=== PATIENT | male | born 1950 | race Caucasian/White ===

== ENCOUNTER 2023-12-23 05:45 | Day surgery (SDC) | payer MEDICARE ==
[~2023-12-23] VITALS: Ht 172.7 cm; Wt 69.1 kg
[~2023-12-23 05:45] MED LIST: LACTATED RINGER'S 1,000 ML IV SCH
[2023-12-23] MEDS ORDERED: FAMOTIDINE 20 MG/ 2 ML VIAL ONE (06:26)
[2023-12-23] MEDS ORDERED: KETOROLAC TROMETHAMINE 30 MG/ML VIAL ONE (06:26)
[2023-12-23] MEDS ORDERED: ondansetron HCL 4 MG/2 ML VIAL ONE (06:26)
[2023-12-23] MEDS ORDERED: propofoL 200 MG/20 ML VIAL ONE (06:26)
[2023-12-23] MEDS ORDERED: DEXAMETHASONE SOD PHOS 4 MG/ML VIAL ONE (06:26)
[2023-12-23] MEDS ORDERED: LACTATED RINGER'S 1,000 ML IV ONE (06:26)
[2023-12-23] MEDS ORDERED: fentaNYL citrate 100 MCG/2 ML VIAL ONE (06:26)
[2023-12-23] MEDS ORDERED: METOCLOPRAMIDE HCL 10 MG/2 ML SDV ONE (06:26)
[2023-12-23] MEDS ORDERED: MIDAZOLAM HCL 2 MG/2 ML VIAL ONE (06:26)
[2023-12-23] MEDS ORDERED: CEFAZOLIN SODIUM 2 GM/20 ML SYR IV SCH (07:00)
[2023-12-23] MEDS ORDERED: IBLOOD GLUCOSE TEST STRIP 1 EA TEST VI PRN ×2 (07:00→09:00)
[2023-12-23] MEDS ORDERED: LIDOCAINE HCL 1% 5 ML SDV INJ ONE (07:00)
[2023-12-23] MEDS ORDERED: HEParin SOD (PORCINE) 5,000 UNIT/0.5 ML SYR SUB-Q SCH (07:00)
--- NOTE | 2023-12-23 07:33 | NUR ---
PT NOT AVAILABLE FOR VISIT. PROVIDED PRAYER.
[2023-12-23] MEDS ORDERED: SUCCINYLCHOLINE IN 0.9% NACL 200 MG/10 ML SYRINGE ONE (07:50)
[2023-12-23] MEDS ORDERED: ATROPINE SULFATE 1 MG/ML VIAL ONE (08:10)
[2023-12-23] MEDS ORDERED: ondansetron HCL 4 MG/2 ML VIAL IV PRN ×2 (09:00→09:45)
[2023-12-23] MEDS ORDERED: METOCLOPRAMIDE HCL 10 MG/2 ML SDV IV PRN (09:00)
[2023-12-23] MEDS ORDERED: PROCHLORPERAZINE EDISYLATE 10 MG/2 ML VIAL IV PRN ×2 (09:00→09:45)
[2023-12-23] MEDS ORDERED: droPERidol 5 MG/2 ML VIAL IV PRN (09:00)
[2023-12-23] MEDS ORDERED: NALOXONE HCL 0.4 MG SYR IV PRN ×2 (09:00→09:45)
[2023-12-23] MEDS ORDERED: fentaNYL citrate 50 MCG/ML SDV IV PRN (09:00)
[2023-12-23] MEDS ORDERED: MORPHINE SULFATE 10 MG/ML VIAL IV PRN (09:00)
--- NOTE | 2023-12-23 09:38 | NUR ---
12/23/23 0938 Pramod Jaimes 0923: PT ARRIVED TO PACU VIA STRETCHER. PT HAD ORAL AIRWAY IN PLACE ON 10L. PT NON AROUSABLE. GAUZE AND TAPE DRESSING IN PLACE TO RIGHT INGUINAL AREA. DRESSING C/D/I. 0928: ORAL ARIWAY REMOVED AT THIS TIME. PT AROUSABLE TO NAME. PT TITRATED TO ROOM AIR WITH REMOVAL OF ORAL AIRWAY. 0935: PT REQUESTING WATER AT THIS TIME FOR DRY MOUTH. SIP OF WATER GIVEN AT THIS TIME.
[2023-12-23] MEDS ORDERED: HYDROCODONE/ACETA 5/325 TAB PO PRN (09:45)
[2023-12-23] MEDS ORDERED: HYDROmorphone HCL 1 MG/ML SYR IV PRN (09:45)
--- NOTE | 2023-12-23 10:15 | NUR ---
patient returned from PACU via stretcher. report taken from STEPHANIE Bustamante. EBL 50mL. He is A&O x4. Patient reporting 6/10 pain, denies nausea. complaining of dry mouth, drinking water. surgical site covered by bandage, no bleeding noted on bandage. Vital signs taken and stable. warm blanket provided. patient denies any other needs at this time.
[2023-12-23] MEDS ORDERED: ACETAMINOPHEN 1,000 MG/100 ML VIAL IV ONE (10:45)
--- NOTE | 2023-12-23 10:57 | NUR ---
PATIENT STILL STATING A 6/10 PAIN TO RIGHT GROIN. IV TYLENOL STARTED PER JUL. PROVIDED CRACKERS FOR PATIENT TO EAT
[2023-12-23 11:12] VITALS: BP 119/65
--- NOTE | 2023-12-23 11:17 | OR ---
[facility] [address], [place] [address] Signed DATE OF OPERATION: 12/23/2023 SURGEON: Luis Daniel Toribio MD PREOPERATIVE DIAGNOSIS: Partial reducible right inguinal hernia. POSTOPERATIVE DIAGNOSIS: Fully reducible right indirect inguinal hernia. PROCEDURE: Right Eris onlay mesh inguinal herniorrhaphy. ESTIMATED BLOOD LOSS: None. INDICATIONS: Evan is a 73-year-old gentleman, who was asked to see me for his right inguinal hernia. Unfortunately, his son was a dentist and committed suicide a little over a month before he came to the office. He had to restrain one of the family members and he felt pulling and swelling in the right groin. He then moved back from the [facility] to be closer to his other children. He is waiting to establish with his primary care provider here in [place], Dr. Viki Carnes in December of this year. In the meantime, he went to the [facility] because of the hernia. An ultrasound of course confirmed hernia. He was asked to see me as a local general surgeon. He does undergo self catheterization following treatment for his prostate cancer. He is quite excellent in that regard. In the office, I gave him our brochure on hernias. We looked at it page by page. I circled the sections relevant to him. He understands the nature of an inguinal hernia. He understands primary suture repair versus mesh repair. There is risk to the surgery including, but not limited to bleeding, infection, scarring, change in contour of the skin, damage to the nerves, ischemic orchitis, recurrent hernias and chronic pain. He also understands the expected intraop and postop course. He had expressed understanding and wished to proceed. PROCEDURE IN DETAIL: I had met with Evan and his in our preop area. We all agreed on the right groin and we marked it appropriately. I could see today that the hernia was reduced in the supine position. After this, Evan took some time to do his self catheterization. We then took him into the operating room and placed him in the supine position under general LMA anesthesia. He was given preoperative antibiotics along with subcutaneous heparin. Electronically Signed By: LUIS DANIEL TORIBIO MD 12/23/23 1117 PATIENT NAME: EVAN BERNARDO OPERATIVE REPORT DATE OF : 46 REPORT #: [id number] PHYSICIAN: LUIS DANIEL TORIBIO MD PCP: FARHAD DORMAN REPORT IS CONFIDENTIAL AND NOT TO BE RELEASED WITHOUT AUTHORIZATION [facility] [address], [place] [address] Signed SCDs were utilized. He was then prepped and draped in the usual sterile fashion. A standard oblique incision was made in the right groin and carried down through the tissues bluntly and with the cautery. We opened the external oblique along its length and developed medially and laterally. We found that his ilioinguinal nerve came down through the external ring and it split and it was even thinner than thread. We eventually had to take that nerve all the way back to the muscle above the deep ring. We tied it off with 2-0 Vicryl suture. We elevated the cord structures at the level of pubic tubercle with the help of a Jerri drain. The direct space was unremarkable. 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 It was suture ligated with 2-0 PDS suture. It was amputated and passed off the field. We found that he indeed had a moderate-sized indirect inguinal hernia sac. The cord structures were carefully and bluntly from the hernia sac all the way down to the deep ring. The sac was and we could easily see through the sac. The sac was suture ligated at the deep ring with a 2-0 PDS pursestring suture. The distal portion of the sac was amputated and passed off the field. We grasped the conjoined tendon and we could see that there was too much tension especially up near the deep ring without the use of a relaxing incision. We went ahead and used our standard flat Prolene mesh to repair his hernia. The mesh was cut to fit his groin and a slit was made in the mesh to accommodate the cord structures at the level of deep ring. The mesh was held in place medially and laterally with the help of running #1 Prolene suture. There was no undue tension of the mesh around the cord structures at the level of the deep ring. Local anesthetic was copiously injected into the wound and the subcutaneous tissues. The wound was irrigated and suctioned out until clear. We closed the external oblique fascia over the repair with a running 2-0 PDS suture. We closed Fifi fascia with a running 3-0 Monocryl suture. The dermis was reapproximated with interrupted 3-0 subcuticular Monocryl sutures. The skin edges were reapproximated with a running 5-0 fast absorbing plain gut suture. Dry gauze and tape was then applied. Evan was then awakened from his anesthesia, extubated in the OR, and taken to the recovery room in stable condition. Luis Daniel Toribio MD ALB/MODL /[id number] cc: Farhad Dorman NP Electronically Signed By: LUIS DANIEL TORIBIO MD 12/23/23 1117 PATIENT NAME: EVAN BERNARDO OPERATIVE REPORT DATE OF : 46 REPORT #: [id number] PHYSICIAN: LUIS DANIEL TORIBIO MD PCP: FARHAD DORMAN REPORT IS CONFIDENTIAL AND NOT TO BE RELEASED WITHOUT AUTHORIZATION [address] [address] Signed MD Viki Rogers MD Copies: LUIS DANIEL TORIBIO MD ~ Electronically Signed By: LUIS DANIEL TORIBIO MD 12/23/23 1117 PATIENT NAME: EVAN BERNARDO OPERATIVE REPORT DATE OF : 46 REPORT #: [id number] PHYSICIAN: LUIS DANIEL TORIBIO MD PCP: FARHAD DORMAN REPORT IS CONFIDENTIAL AND NOT TO BE RELEASED WITHOUT AUTHORIZATION
--- NOTE | 2023-12-23 11:50 | NUR ---
PATIENT UP TO SELF STRAIGHT CATH. PATIENT IS STEADY OF FEET AND ABLE TO AMBULATE BY SELF. PATIENT ALLOWED TO DRESS. PATIENT STILL DENIES ANY NAUSEA/VOMITING. PAIN 4/10 AND TOLERABLE. NO DRAINAGE NOTED ON PATIENT'S DRESSING. DISCHARGE INSTRUCTIONS REVIEWED AND REPORTS UNDERSTANDING. NO OTHER NEEDS AT THIS TIME. PATIENT DISCHARGED VIA WHEELCHAIR.
== END 2023-12-23 11:40 | disposition home or self-care (01) ==
LOC: DS 05:45
PROVIDERS: ATTEND Colon & Rectal Surgery
PROC: 0YU50JZ Supplement Right Inguinal Region with Synthetic Substitute, Open Approach (ICD-10-PCS; principal; 2023-12-23)
DX: K40.90 Unilateral inguinal hernia, without obstruction or gangrene, not specified as recurrent (principal); E78.5 Hyperlipidemia, unspecified; I10 Essential (primary) hypertension; Z79.899 Other long term (current) drug therapy
CPT/HCPCS: 00830; C1781; J0131; J0330; J0461; J0690; J1100; J1644; J1885; J2250; J2405; J2704; J2765; J3010; J7121

== ENCOUNTER 2024-08-05 02:51 | Emergency (ER) | payer MEDICARE ==
[~2024-08-05] VITALS: Ht 172.7 cm; Wt 72.5 kg
[~2024-08-05 02:51] MED LIST changes: +ALPHA LIPOIC A600 M1 PO; +COZAAR50 MG PO; +CRANBERRY425 MG PO; +INTRINSI B12-F1 EACH PO; +IRBESARTAN150 MG PO; -LACTATED RINGER'S 1,000 ML IV SCH; +NORVASC5 MG PO; +OSTERA TABLET1 EACH PO; +TOPROL XL100 MG PO; +TRAMADOL HCL50 MG PO; +XANAX1 MG PO
[2024-08-05 03:14] LABS: BASOPHILS 0.1 % (0-2); HEMATOCRIT 36.5 % (35.0-50.0); HEMOGLOBIN 12.8 g/dL (12.0-18.0); LYMPHOCYTES 1.3 % (24-44); MCH 32.9 (27-36); MCV 93.8 fl (81-99); MONOCYTES 0.6 % (0-12); PLATELET COUNT 180 K/uL (140-440); RBC 3.89 M/ul (4.3-5.7); RDW 12.6 (10.5-15.0)
[2024-08-05 03:29] LABS: ALBUMIN 2.5 g/dL (3.4-5.0); ALBUMIN/GLOBULIN RATIO 0.49 (1.1-2.4); ALCOHOL, MEDICAL <3 ng/dL (<3); ALKALINE PHOSPHATASE 153 U/L (46-116); ALT (SGPT) 30 U/L (14-59); ANION GAP 16.3 (7-21); AST (SGOT) 41 U/L (15-37); BILIRUBIN, TOTAL 0.8 mg/dL (0.2-1.0); BUN/CREATININE RATIO 25.75 (6.0-28.6); CALCIUM 8.7 mg/dL (8.5-10.1); CARBON DIOXIDE 23 mmol/L (21-32); CHLORIDE 96 mmol/L (98-107); CREATININE, SERUM 1.32 mg/dL (0.70-1.30); GLOMERULAR FILTRATION RATE,EST 56 mL/min (>60); POTASSIUM 3.3 mmol/L (3.5-5.1); PROTEIN, TOTAL 7.6 g/dL (6.4-8.2); UREA NITROGEN 34 mg/dL (7-18)
[2024-08-05] MEDS ORDERED: CEFTRIAXONE SODIUM 2 GM in SODIUM CHLORIDE 0.9% 100 ML IV ONE (03:30)
[2024-08-05] MEDS ORDERED: CEFTRIAXONE SODIUM 2 GM VIAL ONE (03:45)
[2024-08-05] MEDS ORDERED: MAGNESIUM SULFATE 2 GM/50 ML BAG IV ONE (03:45)
[2024-08-05 04:07] LABS: LACTIC ACID, BLOOD 1.6 mmol/L (0.4-2.0)
[2024-08-05 04:29] LABS: BILIRUBIN, URINE NEGATIVE (negative); BLOOD/HGB, URINE LARGE (Negative); KETONE, URINE TRACE (Negative); LEUK ESTERASE, URINE MODERATE (negative); NITRITE, URINE NEGATIVE (negative)
[2024-08-05 04:37] LABS: CANNABINOID, URINE POSITIVE (NEGATIVE)
[2024-08-05 04:41] LABS: CASTS, URINE NONE SEEN \\lpf; CRYSTALS, URINE NONE SEEN (0-1+); EPITHELIAL CELLS, URINE 0 /lpf (0-1+); RED BLOOD CELLS, URINE 0-1 /hpf (0-5); WHITE BLOOD CELLS, URINE >50 /HPF (0-5)
[2024-08-05 04:42] LABS: BACTERIA, URINE 4+ /hpf (negative); COLLECTION TYPE, URINE CLEAN CATCH; REFLEX CULTURE, URINE Yes (No)
[2024-08-05] MEDS ORDERED: HEPARIN SOD,PORK IN 0.45% NACL 500 ML IV SCH (04:45)
[2024-08-05] MEDS ORDERED: POTASSIUM CHLORIDE 10 MEQ TABCR PO ONE (04:45)
[2024-08-05] MEDS ORDERED: ASPIRIN 81 MG CHEW PO ONE (04:45)
[2024-08-05] MEDS ORDERED: HEParin SOD (PORCINE) 5,000 UNIT/ML VIAL IV ONE (04:45)
[2024-08-05] MEDS ORDERED: LACTATED RINGER'S 1,000 ML IV ONE (04:45)
[2024-08-05 04:46] LABS: AMPHETAMINES, URINE NEGATIVE (NEGATIVE); BARBITURATES, URINE NEGATIVE (NEGATIVE); BENZODIAZEPINE, URINE POSITIVE (NEGATIVE); BUPRENORPHINE, URINE NEGATIVE (NEGATIVE); COCAINE, URINE NEGATIVE (NEGATIVE); ECSTASY, URINE NEGATIVE (NEGATIVE); FENTANYL, URINE NEGATIVE (NEGATIVE); METHADONE, URINE NEGATIVE (NEGATIVE); OPIATES, URINE NEGATIVE (NEGATIVE); OXYCODONE, URINE NEGATIVE (NEGATIVE); PHENCYCLIDINE, URINE NEGATIVE (NEGATIVE)
[2024-08-05 04:50] LABS: INR 1.12 (0.80-1.30); PROTIME 14.4 Sec (11.2-14.2)
[2024-08-05] MEDS ORDERED: PIPERACILLIN/TAZOBACTAM 3.375 GM VIAL ONE (06:29)
[2024-08-05] MEDS ORDERED: PIPERACILLIN/TAZOBACTAM 3.375 GM in SODIUM CHLORIDE 0.9% 100 ML IV ONE (06:30)
[2024-08-05] MEDS ORDERED: DAPTOmycin 500 MG/10 ML VIAL IV ONE (08:00)
[2024-08-05] MEDS ORDERED: LIDOCAINE 2% VISCOUS 6 ML SYR TOP ONE (08:30)
[2024-08-05 09:30] VITALS: BP 86/55
--- NOTE | 2024-08-05 15:57 | EKG ---
[facility] [address] [place] [address] Signed Normal sinus rhythm Normal ECG When compared with ECG of 21-DEC-2023 13:34, Vent. rate has increased BY 33 BPM Confirmed by Ehsan Luther MD () on 08/05/2024 3:57:08 PM Electronically Signed By: EHSAN LUTHER MD 08/05/24 1557 PATIENT NAME: LANA BERNARDO DIOGO Electrocardiogram DATE OF : 46 PHYSICIAN: EHSAN LUTHER MD REPORT #: [id number] REPORT IS CONFIDENTIAL AND NOT TO BE RELEASED WITHOUT AUTHORIZATION
--- NOTE | 2024-08-05 15:58 | EKG ---
[facility] [address] [facility] [place] [address] Signed Normal sinus rhythm Normal ECG When compared with ECG of 05-AUG-2024 03:40, No significant change was found Confirmed by Ehsan Luther MD () on 08/05/2024 3:58:29 PM Electronically Signed By: EHSAN LUTHER MD 08/05/24 1558 PATIENT NAME: LANA BERNARDO DIOGO Electrocardiogram DATE OF : 46 PHYSICIAN: EHSAN LUTHER MD REPORT #: [id number] REPORT IS CONFIDENTIAL AND NOT TO BE RELEASED WITHOUT AUTHORIZATION
--- NOTE | 2024-08-05 15:59 | EKG ---
[facility] [address] [facility] [place] [address] Signed Normal sinus rhythm Normal ECG When compared with ECG of 05-AUG-2024 06:49, No significant change was found Confirmed by Ehsan Luther MD () on 08/05/2024 3:59:08 PM Electronically Signed By: EHSAN LUTHER MD 08/05/24 1559 PATIENT NAME: LANA BERNARDO Electrocardiogram DATE OF : 46 PHYSICIAN: EHSAN LUTHER MD REPORT #: [id number] REPORT IS CONFIDENTIAL AND NOT TO BE RELEASED WITHOUT AUTHORIZATION
== END 2024-08-05 09:30 | disposition short-term general hospital (02) ==
LOC: ED 02:51
PROVIDERS: Internal Medicine
DX: N39.0 Urinary tract infection, site not specified (principal); R41.82 Altered mental status, unspecified; N36.0 Urethral fistula; E87.6 Hypokalemia; E83.42 Hypomagnesemia; I21.4 Non-ST elevation (NSTEMI) myocardial infarction
CPT/HCPCS: 36415; 51701; 70450; 71045; 74177; 80053; 80307; 81001; 83605; 83735; 83880; 84443; 84484; 85025; 85610; 85730; 87040; 87088; 93005; 93010; 99285-25; A9270; G0480; J0696; J0878; J1644; J2543; J3475; J7121; Q9967; U0002